=== PATIENT | male | born 1970 | race Caucasian/White ===

== ENCOUNTER → 2016-09-19 | Outpatient (CLI) | payer OTHER ==
[~2016-09-19] MED LIST: ALBUAER19 INH; AMLO2.5T PO; ASTN; CEPH500C PO; CLR/5 PO; FLUT0.0529 INH; LEVO175T25 PO; LEVO175T3 PO; MOME200A INH; MONT1TAB3 PO; OMEP20CA9 PO; PSEUCAP67 PO; SULF800T23 PO
== END | disposition home or self-care (01) ==
LOC: C.LAB 06:54
PROVIDERS: ATTEND Internal Medicine
DX: Z00.00 Encounter for general adult medical examination without abnormal findings (principal)

== ENCOUNTER → 2016-10-22 | Outpatient (CLI) | payer OTHER ==
--- NOTE | 2016-11-29 06:58 | PULMONARY FUNCTION TEST ---
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 LUNG VOLUMES: Within normal limits. DIFFUSION CAPACITY: Within normal limits.
== END | disposition home or self-care (01) ==
LOC: C.RC 13:24
PROVIDERS: ATTEND Internal Medicine Pulmonary Disease
DX: J45.901 Unspecified asthma with (acute) exacerbation (principal)

== ENCOUNTER 2016-10-26 14:25 | Emergency (ER) | payer OTHER ==
[~2016-10-26] VITALS: Ht 188 cm; Wt 103.6 kg
[~2016-10-26 14:25] MED LIST changes: -AMLO2.5T PO; -CEPH500C PO; -LEVO175T3 PO; -SULF800T23 PO
[2016-10-26 14:29] VITALS: TEMP 37.3; Ht 188 cm; Wt 103.6 kg
[2016-10-26] MEDS ORDERED: LIDOCAINE HCL 1% 20 ML VIAL ONE (14:46)
[2016-10-26] MEDS ORDERED: CEPH500C PO (15:06)
[2016-10-26] MEDS ORDERED: AMLO2.5T PO (15:09)
[2016-10-26] MEDS ORDERED: SULF800T23 PO (15:09)
[2016-10-26] MEDS ORDERED: LEVO175T3 PO (15:09)
[2016-10-26] MEDS ORDERED: CEPHALEXIN MONOHYDRATE 250 MG CAP PO ONE (15:15)
[2016-10-26 15:17] VITALS: BP 166/100; PULSE 98; O2SAT 96
--- NOTE | 2016-10-26 15:21 | EMERGENCY ROOM VISIT NOTE ---
History Report prepared by Eriberto: Galina Alvarenga Under the Supervision of: Dr. Lucio Theodore D.O. First contact with patient: 14:36 Chief Complaint: SWELLING TO EXTREMITY Stated Complaint: SWOLLEN RT PINKY FINGER History of Present Illness The patient is a 45 year old male who presents to the Emergency Room with complaints of a constant swollen right pinky finger. The patient states that he came back from [place] 1 [place] ago and is not sure if he got a scratch or bite on the trip. He reports that it felt like he had a pimple or bite on the finger about 5 days ago. He notes that he scratched the spot that felt pointy and is not sure if anything came out of it. Last night the patient reports that he went to his doctor's office and started an antibiotic that he used last night and today which is Bactrim. He complains of swelling and redness to the right pinky finger. He denies any injury. Overnight last night he notes that some of the swelling went down but today he was moving furniture and he bumped the finger and it worsened again. He notes that his pain is worsened with movement. No fevers greater than 100.4. Source of History: patient Onset: 5 days ago Position: other (right pinky finger) Timing: constant Modifying Factors (Worsening): movement Note: He complains of swelling and redness to the right pinky finger. He denies any injury. Review of Systems See HPI for pertinent positives & negatives. A total of 10 systems reviewed and were otherwise negative. Past Medical & Surgical Medical Problems: (1) Asthma (2) seasonal allergies Family History No pertinent family history stated. Social History Smoking Status: Never Smoker Alcohol Use: none Marital Status: single Occupation Status: employed Current/Historical Medications Scheduled Amlodipine Besylate (Norvasc), 2.5 MG PO DAILY Azelastine Hcl (Astelin Nasal [place]), 2 SPRAYS NA QPM Cephalexin Monohydrate (Keflex), 500 MG PO QID Levothyroxine Sodium (Levothyroxine Sodium), 175 MCG PO DAILY Montelukast Sodium (Singulair), 10 MG PO QPM Omeprazole (Prilosec), 20 MG PO DAILY Sulfamethoxazole-Trimethoprim (Bactrim Ds 800MG/160MG), 1 TAB PO BID Allergies Coded Allergies: Acetaminophen (Verified Allergy, Mild, RASH, 08/11/14) Oxycodone (Verified Allergy, Mild, RASH, 08/11/14) Unclassified Drugs (Verified Allergy, Unknown, "SEASONAL" ALLERGIES, 08/11) Physical Exam Vital Signs Date Time Temp Pulse Resp B/P Pulse Ox O2 Delivery O2 Flow Rate FiO2 10/26/16 15:17 98 16 166/100 96 Room Air 10/26/16 14:29 37.3 64 18 164/95 98 Physical Exam GENERAL: sitting up in bed, no distress EYE EXAM: normal conjunctiva OROPHARYNX: mucous membranes are moist LUNGS: Normal chest wall mechanics UPPER EXTREMITIES: right fifth digit on dorsal surface between DIP and PIP with swelling and erythema, fluctuance present. Ultrasound shows abscess. Surrounding erythema did not encroach on the palmar surface or DIP/PIP. No pain with flexion or extension of the fifth digit. LOWER EXTREMITIES: No pitting edema. NEURO EXAM: Normal sensorium, ambulating without difficulty. Medical Decision & Procedures Medications Administered Medications (Trade) Dose Ordered Sig/Tanika Route Start Time Stop Time Status Last Admin Dose Admin Cephalexin Monohydrate (Keflex Cap) 500 mg NOW ONCE PO 10/26/16 15:15 10/26/16 15:16 DC 10/26/16 15:11 500 MG Procedure Incision & Drainage Indication: Abscess. Location: dorsal surface right fifth digit between DID and PIP Verbal consent was obtained after the risks and benefits were explained, including but not limited to bleeding, scarring, infection, pain, and bone/joint /nerve damage. At this time, the risks of the procedure are less than the risks of NOT performing the procedure. A time out was taken and the correct patient and site identified. The skin was prepped with betadine and a sterile field set. The wound was anesthetized with 1 ml of 1% lidocaine without epinephrine. The abscess cavity was entered with a number 11 blade and purulent yellow material expressed. The wound was explored for foreign bodies and none found. Debridement was not performed. Detailed wound care instructions and signs and symptoms of worsening infection reviewed with the patient. No complications and the patient tolerated the procedure well. ED Course ED COURSE: Vital signs were reviewed and showed hypertension The patients medical record was reviewed The above diagnostic studies were performed and reviewed. ED treatments and interventions as stated above. 1438: The patient was evaluated in room C6. A complete history and physical examination was performed. 1446: Lidocaine HCl 1ml route. 1515: Keflex Cap 500mg PO. 1518: Upon reevaluation, the patient is hemodynamically stable.I discussed my findings with the patient and he understands and agrees with the treatment plan. Based on the patients age, coexisting illnesses, exam and lab findings the decision to treat as an outpatient was made. The patient remained stable while under my care. The patient appeared well at the time of discharge. Medical Decision Differential diagnosis includes etiologies such as cellulitis, abscess, MRSA infection, DVT, necrotizing fasciitis, dermatitis, drug eruption, as well as others were entertained. Patient is a 45-year-old male who presents the ER for an abscess on the dorsal aspect of his right fifth digit between his PIP and DIP. He was seen by his PCP yesterday and placed on Bactrim. Ultrasound was performed at bedside by myself which showed fluid under the skin suggesting an abscess. Following this I did anesthetize the area and open the skin where it was previously scratch/ open. A fair amount of green purulent discharge was removed. Patient tolerated the procedure well. His antibiotic coverage was expanded with Keflex. He was discharged to follow-up with his primary care doctor in the next 2 days. There is no signs of tenosynovitis or streaking of the erythema down the digit into the hand. Stressed importance of follow-up within 2 days or return immediately with any significant pain with range of motion motion of the digit, erythema tracking up the finger or fevers greater than 100.4. Discussed with Pt concerning signs and symptoms to watch out for. Pt was instructed to follow up with their PCP and discussed with the patient their option to return to the ED at anytime for persistent or worsening symptoms. The appropriate anticipatory guidance and out-patient management, including indications for return to the emergency department, were explained at length to the patient and understood. Impression Primary Impression: Abscess of finger Scribe Attestation The scribe's documentation has been prepared under my direction and personally reviewed by me in its entirety. I confirm that the note above accurately reflects all work, treatment, procedures, and medical decision making performed by me. Departure Information Dispostion Home / Self-Care Prescriptions Cephalexin Monohydrate (Keflex) 500 Mg Cap 500 MG PO QID, #40 CAP Prov: Lucio Theodore, DO 10/26/16 Referrals No Doctor, Assigned (PCP) Forms HOME CARE DOCUMENTATION FORM, IMPORTANT VISIT INFORMATION, WORK / SCHOOL INSTRUCTIONS Patient Instructions My [facility] Additional Instructions Please follow up with your primary care doctor with in the next 24 hours. Any worsening of your symptoms, please return to the ED immediately. This includes fevers greater than 100.4, shaking chills, spreading of the redness down into her hand, unable to extend or flex your pinky, significant pain with movement of your pinky, no improvement within the next 2 days, or any other concerning signs or symptoms from your standpoint. Please soak your fifth digit in warm water 2-3 times a day for the next 2-4 days. Please take Tylenol as needed for pain. Please take both antibiotics. Problem Qualifiers Primary Impression: Abscess of finger Laterality: right Qualified Codes: L02.511 - Cutaneous abscess of right hand
== END 2016-10-26 15:21 | disposition home or self-care (01) ==
LOC: C.EDB 14:26 → C.EDC 15:21
DX: L02.511 Cutaneous abscess of right hand (principal); J45.909 Unspecified asthma, uncomplicated

== ENCOUNTER → 2017-03-21 | Outpatient (CLI) | payer OTHER ==
[~2017-03-21] MED LIST changes: -ALBUAER19 INH; +AMLO2.5T PO; +CEPH500C PO; -CLR/5 PO; -FLUT0.0529 INH; -LEVO175T25 PO; +LEVO175T3 PO; -MOME200A INH; -PSEUCAP67 PO; +SULF800T23 PO
[2017-03-21 10:16] LABS: URINE APPEARANCE CLEAR (CLEAR); URINE BILIRUBIN NEG (NEG); URINE COLOR YELLOW; URINE EPITHELIAL CELL AUTO 0-5 /lpf (0-5); URINE NITRITE NEG (NEG); URINE PH 6.5 (4.5-7.5); URINE SPECIFIC GRAVITY 1.023 (1.000-1.030); UROBILINOGEN NEG (NEG)
[2017-03-21 10:28] LABS: MANUAL MICROSCOPIC REQUIRED? NO; REVIEW REQ? NO
[2017-03-23 14:08] LABS: CHLAMYDIA TRACH RNA*** NOT DETECTED (NOT DETECTED); GC (NEIS GONORRHOEAE)RNA** NOT DETECTED (NOT DETECTED)
== END | disposition home or self-care (01) ==
LOC: C.LAB 06:43
PROVIDERS: ATTEND Internal Medicine
DX: R39.9 Unspecified symptoms and signs involving the genitourinary system (principal)

== ENCOUNTER → 2017-07-11 | Outpatient (CLI) | payer OTHER ==
[~2017-07-11] MED LIST changes: -CEPH500C PO
[2017-07-11 12:17] LABS: ALT/SGPT 52 U/L (12-78); AST/SGOT 31 U/L (15-37); BLOOD UREA NITROGEN 17 mg/dl (7-18); CALCIUM 8.7 mg/dl (8.5-10.1); CARBON DIOXIDE 26 mmol/L (21-32); CHLORIDE 105 mmol/L (98-107); GLUCOSE 95 mg/dl (70-99); POTASSIUM 3.8 mmol/L (3.5-5.1); SODIUM 138 mmol/L (136-145)
[2017-07-11 12:20] LABS: ESTIMATED AVERAGE GLUCOSE 117 mg/dl; HA1C FLAG Normal (Normal)
[2017-07-11 12:28] LABS: CHOLESTEROL 164 mg/dl (0-200); CHOLESTEROL/HDL RATIO 4.6; HDL CHOLESTEROL 36 mg/dl; LDL CHOLESTEROL CALCULATED 94 mg/dl; TRIGLYCERIDES 169 mg/dl (0-150); VERY LOW DENSITY LIPOPROT CALC 34 mg/dl
== END | disposition home or self-care (01) ==
LOC: C.LAB 09:59
PROVIDERS: ATTEND Internal Medicine
DX: R73.01 Impaired fasting glucose (principal); R74.0 Nonspecific elevation of levels of transaminase and lactic acid dehydrogenase [LDH]; E78.5 Hyperlipidemia, unspecified; E03.9 Hypothyroidism, unspecified